=== PATIENT | female | born 1990 | race American Indian/Alaskan Native ===

== ENCOUNTER 2018-12-02 17:24 | Emergency (ER) | payer OTHER ==
--- NOTE | 2018-12-02 17:52 | Emergency Department Report ---
Blank Doc - Documentation Documentation: This is a 28-year-old female that presents with boil to left side face. Stated has drainage some of it yesterday. This initial assessment/diagnostic orders/clinical plan/treatment(s) is/are subject to change based on patient's health status, clinical progression and re-assessment by fellow clinical providers in the ED. Further treatment and workup at subsequent clinical providers discretion. Patient/guardians urged not to elope from the ED as their condition may be serious if not clinically assessed and managed. Initial orders include: 1- Patient sent to [facility] for further evaluation and treatment
--- NOTE | 2018-12-02 21:00 | Emergency Department Report ---
Abscess Boil HPI - HPI Chief Complaint: Skin/Abscess/Foreign Body Stated Complaint: LFT SIDE FACE SWOLLEN Time Seen by Provider: 12/02/18 17:50 Duration: 3 Days Location: Head (left side of face) Severity: Mild History: Yes Pain, Yes Purulent Drainage, No Fever, No Numbness, No Foreign Body, No Previous History, No Insect Bite HPI: This is a 28-year-old -Iranian female who presents with a ball to the left side of face for 3 days. Patient states that she woke up yesterday she noticed purulent drainage and decreased swelling. She reports he remains tender to touch. She also complains of some cough and to posterior neck. It is in termittent for the past 3-4 weeks. She is currently taken ibuprofen for pain. Denies pain to neck it this time. Denies fever, recent injury, warm, numbness or tingling. Home Medications: Previous Rx's Medication Instructions Recorded Last Taken Type Azithromycin [Zithromax Z-VEDA] 250 mg PO DAILY #6 tablet 09/16/18 Unknown Rx Benzonatate [Tessalon Perle] 100 mg PO Q8H PRN #20 capsule 09/16/18 Unknown Rx Doxycycline Hyclate [Doxycycline 100 mg PO Q12HR #28 tab 12/02/18 Unknown Rx Hyclate TAB] Ibuprofen [Motrin 600 MG tab] 600 mg PO Q8H PRN #20 tablet 12/02/18 Unknown Rx Salicylic Acid [Acne Pads] 1 each TP DAILY #1 box 12/02/18 Unknown Rx Allergies/Adverse Reactions: Allergies Allergy/AdvReac Type Severity Reaction Status Date / Time blueberry Allergy Swelling Verified 12/02/18 17:27 strawberry Allergy Swelling Verified 12/02/18 17:27 ED Review of Systems ROS: Stated complaint: LFT SIDE FACE SWOLLEN Other details as noted in HPI Constitutional: denies: chills, fever ENT: denies: ear pain, throat pain Respiratory: denies: cough, shortness of breath, wheezing Cardiovascular: denies: chest pain, palpitations Gastrointestinal: denies: abdominal pain, nausea, diarrhea Musculoskeletal: arthralgia (posterior neck pain). denies: back pain, joint swelling Skin: lesions (abscess to left cheek). denies: rash Neurological: denies: headache, weakness, paresthesias Psychiatric: denies: anxiety, depression ED Past Medical Hx - Past Medical History Previous Medical History?: No - Surgical History Past Surgical History?: No - Social History Smoking Status: Never Smoker Substance Use Type: Alcohol - Medications Home Medications: Home Medications Medication Instructions Recorded Confirmed Last Taken Type Azithromycin [Zithromax Z-VEDA] 250 mg PO DAILY #6 tablet 09/16/18 Unknown Rx Benzonatate [Tessalon Perle] 100 mg PO Q8H PRN #20 capsule 09/16/18 Unknown Rx Doxycycline Hyclate [Doxycycline 100 mg PO Q12HR #28 tab 12/02/18 Unknown Rx Hyclate TAB] Ibuprofen [Motrin 600 MG tab] 600 mg PO Q8H PRN #20 tablet 12/02/18 Unknown Rx Salicylic Acid [Acne Pads] 1 each TP DAILY #1 box 12/02/18 Unknown Rx ED Abscess Boil Physical Exam - Exam General: Vital signs noted. No distress. Alert and acting appropriately. Front/Back of Body, Lg (Color): 1 - 10 mm to 12 mm nonfluctuant erythematous papule to the left maxillary, tenderness, purulent drainage, mild surrounding cellulitis Exam: Yes Tenderness, Yes Surrounding Cellulites/Erythema, Yes Normal Neurologic Exam, Yes Normal Circulation, No Fluctuance, No Lymphangitis, No Crepitation, No Heart Murmur Exam: Neck: Tenderness to palpation left trapezius, FROM, no swelling or erythema. ED Course Vital Signs 12/02/18 17:51 Temperature 97.8 F Pulse Rate 84 Respiratory 18 Rate Blood Pressure 126/84 O2 Sat by Pulse 100 Oximetry Critical care attestation.: If time is entered above; I have spent that time in minutes in the direct care of this critically ill patient, excluding procedure time. ED Medical Decision Making - Medical Decision Making This is a 28 y.o. female that presents with a painful papule to left maxillary and posterior neck pain. No history of prior abscess. Reports a history of acne. Patient is stable and examined by me. No acute signs of distress noted. Physical sinus susceptible acne. Discussed plan to start doxycycline and sali cyclic acid topical for acne. Start ibuprofen for muscle strain. Referral to [facility] or [facility] for follow-up. Patient agrees to ED plan of care. Discharged home and follow up with PCP in 2-3 days. ED Disposition Clinical Impression: Acne vulgaris, Neck pain Strain of left trapezius muscle Qualifiers: Encounter type: initial encounter Qualified Code(s): S46.812A - Strain of other muscles, fascia and tendons at shoulder and upper arm level, left arm, initial encounter Disposition: TO HOME OR SELFCARE Is pt being admited?: No Does the pt Need Aspirin: No Condition: Stable Instructions: Muscle Strain (ED), Acne (ED) Additional Instructions: Referral course of antibiotics as prescribed. The full effects of treatment may take several months and symptoms may flare slightly after initiating treatment. Follow-up with a primary care provider from referrals below. Prescriptions: Salicylic Acid [Acne Pads] 1 each TP DAILY #1 box Doxycycline Hyclate [Doxycycline Hyclate TAB] 100 mg PO Q12HR #28 tab Ibuprofen [Motrin 600 MG tab] 600 mg PO Q8H PRN #20 tablet PRN Reason: Pain Referrals: JOSE BILLY MD [Primary Care Provider] - 3-5 Days [facility] [Outside] - 3-5 Days [facility] [Outside] - 3-5 Days Forms: Work/School Release Form(ED) Time of Disposition: 21:09
== END 2018-12-02 21:16 | disposition home or self-care (01) ==
LOC: ED 17:24
CPT/HCPCS: 99282

== ENCOUNTER 2019-07-24 14:56 | Emergency (ER) | payer OTHER ==
[2019-07-24 15:06] VITALS: BP 133/88
--- NOTE | 2019-07-24 15:13 | Emergency Department Report ---
Blank Doc - Documentation Documentation: 29-year-old female that presents with URI symptoms. This initial assessment/diagnostic orders/clinical plan/treatment(s) is/are subject to change based on patient's health status, clinical progression and re- assessment by fellow clinical providers in the ED. Further treatment and workup at subsequent clinical providers discretion. Patient/guardians urged not to elope from the ED as their condition may be serious if not clinically assessed and managed. Initial orders include: 1- Patient sent to [facility] for further evaluation and treatment 2- xray
--- NOTE | 2019-07-24 16:13 | XRay Report ---
CHEST PA AND LATERAL VIEWS INDICATION: cough. COMPARISON: None available. FINDINGS: Support devices: None. Heart: Within normal limits. Lungs/Pleura: No acute pulmonary or pleural findings. IMPRESSION: 1. No significant abnormality. Signer Name: Bryant Joshi MD Signed: 07/24/2019 4:09 PM Workstation Name: [id number]
--- NOTE | 2019-07-24 18:20 | Emergency Department Report ---
ED General Adult HPI - General Chief complaint: Nausea/Vomiting/Diarrhea Stated complaint: FLU LIKE SX Time Seen by Provider: 07/24/19 15:12 Source: patient Mode of arrival: Ambulatory Limitations: No Limitations - History of Present Illness Initial comments: This is a 29-year-old -[place] female who presents to the emergency room with flulike symptoms. Patient reports fever, headache, diarrhea, and congestion for 3 days. She reports weakness started today with worsening symptoms. She is taking cold and flu medication with minimal improvement of symptoms. Patient states she came over last weekend sick. She started feeling sick the day after she left. She denies myalgia, chest pain, and palpitations. Onset/Timin -: days(s) Radiation: non-radiation Severity scale (0 -10): 0 Improves with: none Worsens with: none Associated Symptoms: denies other symptoms Treatments Prior to Arrival: NSAID - Related Data Previous Rx's Medication Instructions Recorded Last Taken Type Azithromycin [Zithromax Z-VEDA] 250 mg PO DAILY #6 tablet 09/16/18 Unknown Rx Benzonatate [Tessalon Perle] 100 mg PO Q8H PRN #20 capsule 09/16/18 Unknown Rx Doxycycline Hyclate [Doxycycline 100 mg PO Q12HR #28 tab 12/02/18 Unknown Rx Hyclate TAB] Ibuprofen [Motrin 600 MG tab] 600 mg PO Q8H PRN #20 tablet 12/02/18 Unknown Rx Salicylic Acid [Acne Pads] 1 each TP DAILY #1 box 12/02/18 Unknown Rx Benzonatate [Tessalon Perles] 100 mg PO Q8HR PRN #30 capsule 07/24/19 Unknown Rx Cetirizine HCl [Zyrtec 10mg tab] 10 mg PO DAILY #30 tablet 07/24/19 Unknown Rx Allergies Allergy/AdvReac Type Severity Reaction Status Date / Time blueberry Allergy Swelling Verified 12/02/18 17:27 strawberry Allergy Swelling Verified 12/02/18 17:27 ED Review of Systems ROS: Stated complaint: FLU LIKE SX Other details as noted in HPI Constitutional: chills, fever ENT: congestion. denies: ear pain, throat pain Respiratory: cough. denies: shortness of breath, wheezing Cardiovascular: denies: chest pain, palpitations Gastrointestinal: nausea, vomiting, diarrhea. denies: abdominal pain Musculoskeletal: denies: myalgia Skin: denies: rash, lesions Neurological: denies: headache, weakness, paresthesias Psychiatric: denies: anxiety, depression ED Past Medical Hx - Past Medical History Previous Medical History?: No - Surgical History Past Surgical History?: No - Social History Smoking Status: Never Smoker Substance Use Type: None - Medications Home Medications: Home Medications Medication Instructions Recorded Confirmed Last Taken Type Azithromycin [Zithromax Z-VEDA] 250 mg PO DAILY #6 tablet 09/16/18 Unknown Rx Benzonatate [Tessalon Perle] 100 mg PO Q8H PRN #20 capsule 09/16/18 Unknown Rx Doxycycline Hyclate [Doxycycline 100 mg PO Q12HR #28 tab 12/02/18 Unknown Rx Hyclate TAB] Ibuprofen [Motrin 600 MG tab] 600 mg PO Q8H PRN #20 tablet 12/02/18 Unknown Rx Salicylic Acid [Acne Pads] 1 each TP DAILY #1 box 12/02/18 Unknown Rx Benzonatate [Tessalon Perles] 100 mg PO Q8HR PRN #30 capsule 07/24/19 Unknown Rx Cetirizine HCl [Zyrtec 10mg tab] 10 mg PO DAILY #30 tablet 07/24/19 Unknown Rx ED Physical Exam - General Limitations: No Limitations General appearance: alert, in no apparent distress - ENT ENT exam: Present: mucous membranes moist, TM's normal bilaterally, normal external ear exam, other (turbinates congested with mucoid discharge). Absent: normal orophraynx (erythematous posterior pharynx, uvula midline, negative peritonsillar swelling) - Neck Neck exam: Present: normal inspection. Absent: lymphadenopathy - Respiratory Respiratory exam: Present: normal lung sounds bilaterally. Absent: respiratory distress - Cardiovascular Cardiovascular Exam: Present: regular rate, normal rhythm. Absent: systolic murmur, diastolic murmur, rubs, gallop - GI/Abdominal GI/Abdominal exam: Present: soft, normal bowel sounds. Absent: distended, tenderness, guarding, rebound, rigid - Neurological Exam Neurological exam: Present: alert, oriented X3 - Psychiatric Psychiatric exam: Present: normal affect, normal mood - Skin Skin exam: Present: warm, dry, intact, normal color. Absent: rash ED Course Vital Signs 07/24/19 15:05 Temperature 98.2 F Pulse Rate 69 Respiratory 16 Rate Blood Pressure 133/88 O2 Sat by Pulse 98 Oximetry ED Medical Decision Making - Radiology Data Radiology results: report reviewed CHEST PA AND LATERAL VIEWS INDICATION: cough. COMPARISON: None available. FINDINGS: Support devices: None. Heart: Within normal limits. Lungs/Pleura: No acute pulmonary or pleural findings. IMPRESSION: 1. No significant abnormality. - Medical Decision Making Patient examined by me and stable. No distress noted. Vitals normal. Chest xray has been obtained and negative for acute cardiopulmonary findings. Patient notified of x-ray results with no questions. Vitals are normal and nonfocal exam and was mild congestion. At this time I do not believe this is influenza. Start benzonatate and ceterizine. Instructed to taking ibuprofen or tylenol for fever and pain control. Patient agrees with ER plan. Discharged home stable. Encouraged to do supportive care for URI. Follow up with Primary Care Provider in 2-3 days. Return to work in 2 days. Critical care attestation.: If time is entered above; I have spent that time in minutes in the direct care of this critically ill patient, excluding procedure time. ED Disposition Clinical Impression: Cough in adult Upper respiratory infection Qualifiers: URI type: acute nasopharyngitis (common cold) Qualified Code(s): J00 - Acute nasopharyngitis [common cold] Disposition: TO HOME OR SELFCARE Is pt being admited?: No Condition: Stable Instructions: Cold Symptoms (ED), Upper Respiratory Infection (ED) Additional Instructions: Increase fluid intake and rest. Wash hands frequently. Continue taking Tylenol or ibuprofen to control fever. F/U with Primary Care Provider. Return to ER if fever, SOB, or difficulty breathing after 48 hours of supportive care. Prescriptions: Benzonatate [Tessalon Perles] 100 mg PO Q8HR PRN #30 capsule PRN Reason: Cough Cetirizine HCl [Zyrtec 10mg tab] 10 mg PO DAILY #30 tablet Referrals: [facility] [Outside] - 3-5 Days [facility] [Outside] - 3-5 Days [facility] [Outside] - 3-5 Days Forms: Work/School Release Form(ED) Time of Disposition: 18:29
== END 2019-07-24 18:36 | disposition home or self-care (01) ==
LOC: ED 14:56
DX: J06.9 Acute upper respiratory infection, unspecified (principal)
CPT/HCPCS: 71046

== ENCOUNTER 2020-01-16 12:15 | Emergency (ER) | payer OTHER ==
[2020-01-16 12:24] VITALS: BP 128/90
--- NOTE | 2020-01-16 13:31 | Emergency Department Report ---
Minor Respiratory - HPI Chief Complaint: Upper Respiratory Infection Stated Complaint: CONGESTION/DIZZY Time Seen by Provider: 01/16/20 13:26 Minor Respiratory: Yes Rhinorrhea, Yes Cough, No Sore Throat, No Shortness of Breath, No Fever Other History: 29-year-old -[place] female presents to the emergency room stating that she woke up with sweats aching cold this a.m. Patient complains of nasal congestion headache rhinorrhea runny eyes and sneezing. Patient states that she took a allergy medication this morning that was pink. Patient does admit to some nausea and feels like the room is spinning. Patient stated the symptoms started yesterday. Patient denies any shortness of breath chest pain worst headache of her life or vomiting. Patient reports that she has a history of allergies. ED Review of Systems ROS: Stated complaint: CONGESTION/DIZZY Other details as noted in HPI ED Past Medical Hx - Past Medical History Previous Medical History?: No - Surgical History Past Surgical History?: No - Social History Smoking Status: Never Smoker Substance Use Type: None - Medications Home Medications: Home Medications Medication Instructions Recorded Confirmed Last Taken Type Azithromycin [Zithromax Z-VEDA] 250 mg PO DAILY #6 tablet 09/16/18 Unknown Rx Benzonatate [Tessalon Perle] 100 mg PO Q8H PRN #20 capsule 09/16/18 Unknown Rx Doxycycline Hyclate [Doxycycline 100 mg PO Q12HR #28 tab 12/02/18 Unknown Rx Hyclate TAB] Ibuprofen [Motrin 600 MG tab] 600 mg PO Q8H PRN #20 tablet 12/02/18 Unknown Rx Salicylic Acid [Acne Pads] 1 each TP DAILY #1 box 12/02/18 Unknown Rx Benzonatate [Tessalon Perles] 100 mg PO Q8HR PRN #30 capsule 07/24/19 Unknown Rx Cetirizine HCl [Zyrtec 10mg tab] 10 mg PO DAILY #30 tablet 07/24/19 Unknown Rx Cetirizine HCl [ZyrTEC 10mg cap] 10 mg PO QDAY #30 capsule 01/16/20 Unknown Rx Fluticasone [Flonase] 1 spray NS QDAY #1 bottle 01/16/20 Unknown Rx Meclizine [Antivert] 25 mg PO TID PRN #15 tablet 01/16/20 Unknown Rx Olopatadine HCl [Pataday 0.2%] 1 drop OP QDAY #1 bottle 01/16/20 Unknown Rx Minor Respiratory Exam - Exam General: Vital signs noted. No distress. Alert and acting appropriately. HEENT: Yes Moist Mucous Membranes, No Pharyngeal Erythema, No Pharyngeal Exudates, No Rhinorrhea, No Conjuctival Injection, No Frontal Tenderness, No Maxillary Tenderness Ear: Neither TM Bulge, Neither TM Erythema, Neither EAC Pain, Neither EAC D ischarge Neck: Yes Supple, No Adenopathy Lungs: Yes Good Air Exchange, No Wheezes, No Ronchi, No Stridor, No Cough, No Labored Respirations, No Retractions, No Use of Accessory Muscles, No Other Abnormal Lung Sounds Heart: Yes Regular, No Murmur Abdomen: Yes Normal Bowel Sounds, No Tenderness, No Peritoneal Signs Skin: No Rash, No Edema Neurologic: Alert and oriented, no deficits. Musculoskeletal: Unremarkable. ED Course Vital Signs 01/16/20 12:22 Temperature 98.2 F Pulse Rate 73 Respiratory 16 Rate Blood Pressure 128/90 O2 Sat by Pulse 99 Oximetry ED Medical Decision Making - Medical Decision Making 29-year-old -[place] female presents to the emergency room stating that she woke up with sweats aching cold this a.m. Patient complains of nasal congestion headache rhinorrhea runny eyes and sneezing. Patient states that she took a allergy medication this morning that was pink. Patient does admit to some nausea and feels like the room is spinning. Patient stated the symptoms started yesterday. Patient denies any shortness of breath chest pain worst headache of her life or vomiting. Patient reports that she has a history of allergies. Recommend taking [id number] Claritin or Zyrtec's. She can use meclizine as needed take Flonase daily use Pataday daily increase her fluid intake. Follow-up with a primary care provider if her symptoms persist or gets worse Critical care attestation.: If time is entered above; I have spent that time in minutes in the direct care of this critically ill patient, excluding procedure time. ED Disposition Clinical Impression: Vertigo, Allergic rhinitis due to allergen Disposition: DC-01 TO HOME OR SELFCARE Is pt being admited?: No Does the pt Need Aspirin: No Condition: Stable Instructions: Allergic Rhinitis (ED) Additional Instructions: Take medications as prescribed. Follow-up with your primary care provider. Prescriptions: Meclizine [Antivert] 25 mg PO TID PRN #15 tablet PRN Reason: Vertigo Fluticasone [Flonase] 1 spray NS QDAY #1 bottle Olopatadine HCl [Pataday 0.2%] 1 drop OP QDAY #1 bottle Cetirizine HCl [ZyrTEC 10mg cap] 10 mg PO QDAY #30 capsule Referrals: PRIMARY MD NINOSKA [Primary Care Provider] - 3-5 Days MARTIN UMANA MD [Staff Physician] - 3-5 Days Forms: Work/School Release Form(ED)
== END 2020-01-16 13:39 | disposition home or self-care (01) ==
LOC: ED 12:15
DX: R42 Dizziness and giddiness (principal); J30.89 Other allergic rhinitis; Z79.1 Long term (current) use of non-steroidal anti-inflammatories (NSAID); Z79.2 Long term (current) use of antibiotics; Z79.899 Other long term (current) drug therapy; Z91.018 Allergy to other foods
CPT/HCPCS: 99282

== ENCOUNTER 2020-06-06 20:05 | Emergency (ER) | payer OTHER ==
[2020-06-06 22:29] LABS: HCG Qualitative,Urine Negative (Negative)
--- NOTE | 2020-06-06 23:03 | XRay Report ---
CHEST 2 VIEWS INDICATION: Shortness of breath.. COMPARISON: 07/24/2019. FINDINGS: Support devices: None. Heart: Within normal limits. Lungs/Pleura: No acute air space or interstitial disease. No significant pleural effusion. IMPRESSION: No acute findings. Signer Name: Mark Anthony Vo MD Signed: 06/06/2020 10:58 PM Workstation Name: [id number]
[2020-06-07] MEDS ORDERED: ACETAMINOPHEN 500 MG TAB PO ONE (00:11)
[2020-06-07] MEDS ORDERED: IBUPROFEN 400 MG TAB PO ONE (00:11)
--- NOTE | 2020-06-07 00:13 | Emergency Department Report ---
ED General Adult HPI - General Chief complaint: Chest Pain Stated complaint: CHEST PAIN/ANXIETY PUI?: No Time Seen by Provider: 06/07/20 00:04 Source: patient, RN notes reviewed, old records reviewed Mode of arrival: Ambulatory Limitations: No Limitations - History of Present Illness Initial comments: The patient was evaluated in the emergency department for symptoms described in the history of present illness. He/she was evaluated in the context of the global COVID-19 pandemic, which necessitated consideration that the patient might be at risk for infection with the virus that causes COVID-19. Institutional protocols and algorithms that pertain to the evaluation of patients at risk for COVID-19 are in a state of rapid change based on information released by regulatory bodies including the CDC and federal and state organizations. These policies and algorithms were followed during the patient's care in the emergency department. Please note that these policies, procedures and recommendations changed on a rapid basis. During the entire history and physical examination, I am pulverizer feeder and escorted by shear assembler Joe Walker The patient is a pleasant, and anxious 29-year-old female, who states that she is not , who presents to the ER with a complaint of 11 hours of constant chest wall tightness, which started after she "began to have an anxiety attack." The patient reports a history of anxiety, and reports numerous psychosocial stressors. At 1:00 PM on June 06, 2020, she reports having had an anxiety attack, and developed constant chest wall tightness, which does not radiate to the back, arms or neck, without vomiting, diaphoresis, or exertional shortness of breath. She denies , oral contraceptive use, travel, surgery, recent /delivery, and denies DVT, pulmonary embolism risk factors. She also denies family history of DVT, pulmonary embolism, and ischemic heart d isease. Denies headache, neck pain, abdominal pain, vomiting, urinary symptoms, extremity weakness and or numbness. Her chest wall pain is constant, increases with palpation, range of motion, inspiration, and decreases with rest and position. -: Sudden, hour(s) Location: chest Radiation: non-radiation Quality: aching Consistency: constant Improves with: other Worsens with: other - Related Data Previous Rx's Medication Instructions Recorded Last Taken Type Azithromycin [Zithromax Z-VEDA] 250 mg PO DAILY #6 tablet 09/16/18 Unknown Rx Benzonatate [Tessalon Perle] 100 mg PO Q8H PRN #20 capsule 09/16/18 Unknown Rx Doxycycline Hyclate [Doxycycline 100 mg PO Q12HR #28 tab 12/02/18 Unknown Rx Hyclate TAB] Ibuprofen [Motrin 600 MG tab] 600 mg PO Q8H PRN #20 tablet 12/02/18 Unknown Rx Salicylic Acid [Acne Pads] 1 each TP DAILY #1 box 12/02/18 Unknown Rx Benzonatate [Tessalon Perles] 100 mg PO Q8HR PRN #30 capsule 07/24/19 Unknown Rx Cetirizine HCl [Zyrtec 10mg tab] 10 mg PO DAILY #30 tablet 07/24/19 Unknown Rx Cetirizine HCl [ZyrTEC 10mg cap] 10 mg PO QDAY #30 capsule 01/16/20 Unknown Rx Fluticasone [Flonase] 1 spray NS QDAY #1 bottle 01/16/20 Unknown Rx Meclizine [Antivert] 25 mg PO TID PRN #15 tablet 01/16/20 Unknown Rx Olopatadine HCl [Pataday 0.2%] 1 drop OP QDAY #1 bottle 01/16/20 Unknown Rx Allergies Allergy/AdvReac Type Severity Reaction Status Date / Time blueberry Allergy Swelling Verified 01/16/20 12:23 strawberry Allergy Swelling Verified 01/16/20 12:23 ED Review of Systems ROS: Stated complaint: CHEST PAIN/ANXIETY Other details as noted in HPI Constitutional: denies: fever, malaise, weakness Eyes: denies: eye discharge ENT: denies: congestion Respiratory: other (Patient denies exertional shortness of breath or dyspnea). denies: cough Cardiovascular: chest pain, palpitations. denies: orthopnea Gastrointestinal: denies: abdominal pain, nausea, vomiting, diarrhea Genitourinary: denies: urgency Musculoskeletal: denies: arthralgia, myalgia Neurological: weakness Psychiatric: anxiety. denies: homicidal thoughts, suicidal thoughts ED Past Medical Hx - Past Medical History Previous Medical History?: No - Social History Smoking Status: Never Smoker - Medications Home Medications: Home Medications Medication Instructions Recorded Confirmed Last Taken Type Azithromycin [Zithromax Z-VEDA] 250 mg PO DAILY #6 tablet 09/16/18 Unknown Rx Benzonatate [Tessalon Perle] 100 mg PO Q8H PRN #20 capsule 09/16/18 Unknown Rx Doxycycline Hyclate [Doxycycline 100 mg PO Q12HR #28 tab 12/02/18 Unknown Rx Hyclate TAB] Ibuprofen [Motrin 600 MG tab] 600 mg PO Q8H PRN #20 tablet 12/02/18 Unknown Rx Salicylic Acid [Acne Pads] 1 each TP DAILY #1 box 12/02/18 Unknown Rx Benzonatate [Tessalon Perles] 100 mg PO Q8HR PRN #30 capsule 07/24/19 Unknown Rx Cetirizine HCl [Zyrtec 10mg tab] 10 mg PO DAILY #30 tablet 07/24/19 Unknown Rx Cetirizine HCl [ZyrTEC 10mg cap] 10 mg PO QDAY #30 capsule 01/16/20 Unknown Rx Fluticasone [Flonase] 1 spray NS QDAY #1 bottle 01/16/20 Unknown Rx Meclizine [Antivert] 25 mg PO TID PRN #15 tablet 01/16/20 Unknown Rx Olopatadine HCl [Pataday 0.2%] 1 drop OP QDAY #1 bottle 01/16/20 Unknown Rx ED Physical Exam - General Limitations: No Limitations General appearance: alert, in no apparent distress - Head Head exam: Present: atraumatic, normocephalic - Eye Eye exam: Present: normal appearance, EOMI. Absent: nystagmus - ENT ENT exam: Present: normal exam, normal orophraynx, mucous membranes moist, normal external ear exam - Neck Neck exam: Present: normal inspection, full ROM. Absent: tenderness, meningismus - Respiratory Respiratory exam: Present: normal lung sounds bilaterally, chest wall tenderness. Absent: respiratory distress, wheezes, rales, rhonchi, stridor - Cardiovascular Cardiovascular Exam: Present: normal rhythm, bradycardia, normal heart sounds. Absent: tachycardia, irregular rhythm, systolic murmur, diastolic murmur, rubs, gallop - GI/Abdominal GI/Abdominal exam: Present: soft, normal bowel sounds. Absent: distended, tenderness, guarding, rebound, rigid - Extremities Exam Extremities exam: Present: normal inspection, full ROM, other (2+ pulses noted in the bilateral upper and lower extremities. There is no palpable cord. negative Homans sign. Muscular compartments are soft. The pelvis is stable.). Absent: pedal edema, calf tenderness - Back Exam Back exam: Present: normal inspection, full ROM. Absent: tenderness, CVA tenderness (R), CVA tenderness (L), paraspinal tenderness, vertebral tenderness - Neurological Exam Neurological exam: Present: alert, oriented X3, normal gait, other (No facial droop. Tongue midline. Extraocular movements intact bilaterally. Facial sensation intact to light touch in V1, V2, V3 distribution bilaterally. 5 and a 5 strength in 4 extremities. Sensation intact to light touch in 4 extremities.). Absent: motor sensory deficit - Psychiatric Psychiatric exam: Present: normal affect, normal mood. Absent: homicidal ideation, suicidal ideation - Skin Skin exam: Present: warm, dry, intact, normal color. Absent: rash ED Course Vital Signs 06/06/20 20:24 Temperature 98.2 F Pulse Rate 61 Respiratory 16 Rate Blood Pressure 127/87 O2 Sat by Pulse 98 Oximetry ED Medical Decision Making - Lab Data Vital Signs 06/06/20 20:24 Temperature 98.2 F Pulse Rate 61 Respiratory 16 Rate Blood Pressure 127/87 O2 Sat by Pulse 98 Oximetry - EKG Data -: EKG Interpreted by Ks - EKG Data 06/07/20 00:17 No prior EKGs available for comparison. Sinus rhythm, bradycardia, 53 bpm, normal axis, normal intervals, borderline high left ventricular voltage, the EKG is not a STEMI. - Radiology Data Radiology results: report reviewed, image reviewed X-ray of the chest is negative for acute findings. - Medical Decision Making Differential diagnosis, including but not limited to: Costochondritis, GERD, gastritis, hiatal hernia, pneumonia, panic attacks/anxiety Assessment and plan: 29-year-old female, who is afebrile, with reassuring vital signs, not currently tachycardic, tachypneic or hypoxic, with no DVT or pulmonary embolism risk factors, low risk by Wells criteria, who was PERC negative, who presents with approximately 11 hours of constant reproducible chest wall pain, without vomiting, diaphoresis, or exertional shortness of breath. Her chest x-ray is unremarkable, physical exam unremarkable with exception of reproducible chest wall tenderness, EKG morphologically unremarkable, and when I walked into the room to evaluate the patient, she is talking/playing on a cellular phone, and she is in no acute distress. Reassurance provided, expectant management, she can follow-up with an outpatient primary care doctor and/or automatic coil machine operator. Critical care attestation.: If time is entered above; I have spent that time in minutes in the direct care of this critically ill patient, excluding procedure time. ED Disposition Clinical Impression: Chest wall pain Disposition: DC-01 TO HOME OR SELFCARE Is pt being admited?: No Does the pt Need Aspirin: No Condition: Stable Instructions: Costochondritis (ED) Additional Instructions: Patient may alternate Tylenol [id number], with ibuprofen [id number] as needed for pain. Avoid heavy lifting and strenuous physical activities, and participate in exercise as tolerated. Avoid consumption of alcohol, smoke products, heavy and/or spicy foods. Follow-up with your primary care doctor or a automatic coil machine operator within the next 5 to 7 days. Please return to the emergency room right away with new pain, worsening pain, migration of pain, projectile vomiting, change in mental status, confusion, inability to tolerate liquid feeds, new, worsened or different symptoms not present on the initial emergency room evaluation. Referrals: MARTIN UMANA MD [Staff Physician] - 3-5 Days BIBI FERNANDEZ MD [Staff Physician] - 3-5 Days Forms: Work/School Release Form(ED)
[2020-06-07 00:17] VITALS: BP 131/90
== END 2020-06-07 00:41 | disposition home or self-care (01) ==
LOC: ED 20:05
DX: R07.89 Other chest pain (principal); R00.2 Palpitations; Z79.899 Other long term (current) drug therapy; Z91.018 Allergy to other foods
CPT/HCPCS: 71046; 81025; 93005

== ENCOUNTER 2020-09-01 20:04 | Emergency (ER) | payer SELFPAY ==
[2020-09-01 20:56] VITALS: BP 137/89
--- NOTE | 2020-09-01 21:01 | Event Note ---
ED Screening Note ED Screening Note: states she has been coughing a week states she has streaks of blood after frequent coughing today no v/d +nausea +CP after coughing +SOB +sore throat PMHx none no allergies to meds LNMP: 08/22/2020 This initial assessment/diagnostic orders/clinical plan/treatment(s) is/are subject to change based on patients health status, clinical progression and re- assessment by fellow clinical providers in the ED. Further treatment and workup at subsequent clinical providers discretion. Patient/guardian urged not to elope from the ED as their condition may be serious if not clinically assessed and managed. Initial orders include: CXR, labs, UA, urine preg
[2020-09-01 21:56] LABS: Bilirubin,Urine NEG (Negative); Blood,Urine SM (Negative); Color,Urine Yellow (Yellow); Mucus,Urine FEW /HPF; Protein,Urine <15 mg/dL mg/dL (Negative); Urobilinogen,Urine < 2.0 mg/dL (<2.0)
[2020-09-01 22:01] LABS: HCG Qualitative,Urine Negative (Negative)
[2020-09-01 22:32] LABS: Basophils % (Auto) 0.6 % (0.0-1.8); Eosinophils # (Auto) 0.2 K/mm3 (0.0-0.4); Eosinophils % (Auto) 2.8 % (0.0-4.3); Hemoglobin 12.8 gm/dl (10.1-14.3); Lymphocytes # (Auto) 2.3 K/mm3 (1.2-5.4); Lymphocytes % (Auto) 35.2 % (13.4-35.0); Mean Corpuscular HGB Conc 31 % (30-34); Mean Corpuscular Volume 72 fl (79-97); Monocytes # (Auto) 0.5 K/mm3 (0.0-0.8); Monocytes % (Auto) 7.3 % (0.0-7.3); Platelet Count 398 K/mm3 (140-440); Red Blood Count 5.69 M/mm3 (3.65-5.03); Red Cell Distribution Width 14.5 % (13.2-15.2)
--- NOTE | 2020-09-01 22:33 | XRay Report ---
CHEST 2 VIEWS INDICATION / CLINICAL INFORMATION: cough x 1 week. COMPARISON: Chest radiograph 06/06/2020 FINDINGS: SUPPORT DEVICES: None. HEART / MEDIASTINUM: No significant abnormality. LUNGS / PLEURA: No significant pulmonary or pleural abnormality. No pneumothorax. ADDITIONAL FINDINGS: No significant additional findings. IMPRESSION: 1. No acute findings. Signer Name: Jossie Mckay MD Signed: 09/01/2020 10:29 PM Workstation Name: [id number]
[2020-09-01 23:26] LABS: Alanine Aminotransferase 16 units/L (7-56); Albumin 4.3 g/dL (3.9-5); Blood Urea Nitrogen 10 mg/dL (7-17); Calcium 10.3 mg/dL (8.4-10.2); Hemolysis Index 51
[2020-09-01 23:34] LABS: BUN/Creatinine Ratio 20
[2020-09-02] MEDS ORDERED: LIDOCAINE VISCOUS 2% 15 ML ORAL LIQD PO ONE (00:02)
[2020-09-02] MEDS ORDERED: IBUPROFEN 600 MG TAB PO ONE (00:02)
[2020-09-02] MEDS ORDERED: predniSONE 20 MG TAB PO ONE (00:02)
[2020-09-02] MEDS ORDERED: AMOXICILLIN/K CLAV 875/125MG TAB PO ONE (00:02)
--- NOTE | 2020-09-02 00:07 | Emergency Department Report ---
- General Chief Complaint: Upper Respiratory Infection Stated Complaint: COLD SX/CHEST PAIN/HEADACHE/SORE THROAT Time Seen by Provider: 09/01/20 20:59 Source: patient Mode of arrival: Ambulatory Limitations: No Limitations - History of Present Illness Initial Comments: Patient is a 30-year-old -[place] female with no past medical history presents to the ED with complaint of acute onset persistent nasal and sinus congestion, frontal sinus pressure, with a headache and persistent dry cough for the last 1 week. Patient also complains of severe sore throat with dysphagia for the last 3 days. Patient also complains of vaginal spotting for the last 12 hours despite her last menstrual cycle having ended 4 days ago. Patient denies fever, chills, nausea and vomiting, diarrhea, abdominal pain, chest pain, shortness of breath, dizziness, syncope, neck pain, change in vision, seizures, dysuria or urinary frequency and urgency. MD Complaint: cough, sore throat, rhinorrhea, nasal congestion, sinus pain -: Sudden, week(s) (1) Severity: severe Severity scale (0 -10): 8 Quality: sharp, aching Consistency: constant Improves With: nothing Worsens With: nothing Associated Symptoms: denies other symptoms, myalgias, headache, rhinorrhea, nasal congestion, sore throat, cough. denies: fever, chills, stiff neck, chest pain, shortness of breath, abdominal pain, nausea, vomiting, diarrhea, dysuria, rash, confusion, right sweats, weight loss, epistaxis, hoarseness, ear pain, other Treatments Prior to Arrival: "cold medicine" - Related Data Previous Rx's Medication Instructions Recorded Last Taken Type Azithromycin [Zithromax Z-VEDA] 250 mg PO DAILY #6 tablet 09/16/18 Unknown Rx Benzonatate [Tessalon Perle] 100 mg PO Q8H PRN #20 capsule 09/16/18 Unknown Rx Doxycycline Hyclate [Doxycycline 100 mg PO Q12HR #28 tab 12/02/18 Unknown Rx Hyclate TAB] Ibuprofen [Motrin 600 MG tab] 600 mg PO Q8H PRN #20 tablet 12/02/18 Unknown Rx Salicylic Acid [Acne Pads] 1 each TP DAILY #1 box 12/02/18 Unknown Rx Cetirizine HCl [Zyrtec 10mg tab] 10 mg PO DAILY #30 tablet 07/24/19 Unknown Rx Fluticasone [Flonase] 1 spray NS QDAY #1 bottle 01/16/20 Unknown Rx Meclizine [Antivert] 25 mg PO TID PRN #15 tablet 01/16/20 Unknown Rx Olopatadine HCl [Pataday 0.2%] 1 drop OP QDAY #1 bottle 01/16/20 Unknown Rx Amoxicillin/Potassium Clav 1 each PO Q12H #20 tablet 09/02/20 Unknown Rx [Augmentin 875-125 Tablet] Benzonatate [Tessalon Perles] 100 mg PO Q8HR PRN #30 capsule 09/02/20 Unknown Rx Cetirizine HCl [ZyrTEC 10mg cap] 10 mg PO QDAY #30 capsule 09/02/20 Unknown Rx Ibuprofen [Motrin] 800 mg PO Q8HR PRN #24 tablet 09/02/20 Unknown Rx Lidocaine Viscous 2% 10 ml PO Q6H PRN #120 ml 09/02/20 Unknown Rx Ondansetron [Zofran Odt] 4 mg PO Q6HR PRN #15 tab.rapdis 09/02/20 Unknown Rx Prednisone [predniSONE 10 mg 10 mg PO .TAPER #21 tab.ds.pk 09/02/20 Unknown Rx (6-Day Pack, 21 Tabs)] Allergies Allergy/AdvReac Type Severity Reaction Status Date / Time blueberry Allergy Swelling Verified 01/16/20 12:23 strawberry Allergy Swelling Verified 01/16/20 12:23 ED Review of Systems ROS: Stated complaint: COLD SX/CHEST PAIN/HEADACHE/SORE THROAT Other details as noted in HPI Constitutional: denies: chills, fever Eyes: denies: eye pain, eye discharge, vision change ENT: throat pain, congestion, other (Frontal sinus pressure). denies: ear pain Respiratory: denies: cough, shortness of breath, wheezing Cardiovascular: denies: chest pain, palpitations, edema, syncope, paroxysmal nocturnal dyspnea Endocrine: no symptoms reported. denies: excessive sweating, flushing, increased hunger, increased thirst Gastrointestinal: denies: abdominal pain, nausea, vomiting, diarrhea, constipation, hematochezia Genitourinary: denies: urgency, dysuria, frequency, hematuria, discharge Musculoskeletal: denies: back pain, joint swelling, arthralgia Skin: denies: rash, lesions Neurological: headache. denies: weakness, paresthesias Psychiatric: denies: anxiety, depression Hematological/Lymphatic: denies: easy bleeding, easy bruising ED Past Medical Hx - Past Medical History Previous Medical History?: No - Surgical History Past Surgical History?: No - Social History Smoking Status: Never Smoker - Medications Home Medications: Home Medications Medication Instructions Recorded Confirmed Last Taken Type Azithromycin [Zithromax Z-VEDA] 250 mg PO DAILY #6 tablet 09/16/18 Unknown Rx Benzonatate [Tessalon Perle] 100 mg PO Q8H PRN #20 capsule 09/16/18 Unknown Rx Doxycycline Hyclate [Doxycycline 100 mg PO Q12HR #28 tab 12/02/18 Unknown Rx Hyclate TAB] Ibuprofen [Motrin 600 MG tab] 600 mg PO Q8H PRN #20 tablet 12/02/18 Unknown Rx Salicylic Acid [Acne Pads] 1 each TP DAILY #1 box 12/02/18 Unknown Rx Cetirizine HCl [Zyrtec 10mg tab] 10 mg PO DAILY #30 tablet 07/24/19 Unknown Rx Fluticasone [Flonase] 1 spray NS QDAY #1 bottle 01/16/20 Unknown Rx Meclizine [Antivert] 25 mg PO TID PRN #15 tablet 01/16/20 Unknown Rx Olopatadine HCl [Pataday 0.2%] 1 drop OP QDAY #1 bottle 01/16/20 Unknown Rx Amoxicillin/Potassium Clav 1 each PO Q12H #20 tablet 09/02/20 Unknown Rx [Augmentin 875-125 Tablet] Benzonatate [Tessalon Perles] 100 mg PO Q8HR PRN #30 capsule 09/02/20 Unknown Rx Cetirizine HCl [ZyrTEC 10mg cap] 10 mg PO QDAY #30 capsule 09/02/20 Unknown Rx Ibuprofen [Motrin] 800 mg PO Q8HR PRN #24 tablet 09/02/20 Unknown Rx Lidocaine Viscous 2% 10 ml PO Q6H PRN #120 ml 09/02/20 Unknown Rx Ondansetron [Zofran Odt] 4 mg PO Q6HR PRN #15 tab.rapdis 09/02/20 Unknown Rx Prednisone [predniSONE 10 mg 10 mg PO .TAPER #21 tab.ds.pk 12/10/20 Unknown Rx (6-Day Pack, 21 Tabs)] ED Physical Exam - General Limitations: No Limitations General appearance: alert, in no apparent distress - Head Head exam: Present: atraumatic, normocephalic, normal inspection - Eye Eye exam: Present: normal appearance, PERRL, EOMI Pupils: Present: normal accommodation - ENT ENT exam: Present: mucous membranes moist, TM's normal bilaterally, normal external ear exam, other (Palpable frontal sinus tenderness; erythematous oropharynx and thick white tonsillar exudates) - Neck Neck exam: Present: normal inspection, full ROM, lymphadenopathy - Respiratory Respiratory exam: Present: normal lung sounds bilaterally. Absent: respiratory distress, wheezes, rales, rhonchi, chest wall tenderness, accessory muscle use, decreased breath sounds - Cardiovascular Cardiovascular Exam: Present: regular rate, normal rhythm, normal heart sounds. Absent: systolic murmur, diastolic murmur, rubs, gallop - GI/Abdominal GI/Abdominal exam: Present: soft, normal bowel sounds. Absent: tenderness, guarding, rebound, hyperactive bowel sounds, hypoactive bowel sounds, organomegaly - Extremities Exam Extremities exam: Present: normal inspection, full ROM, normal capillary refill - Back Exam Back exam: Present: normal inspection, full ROM. Absent: tenderness, CVA t enderness (R), CVA tenderness (L), muscle spasm, paraspinal tenderness, vertebral tenderness - Neurological Exam Neurological exam: Present: alert, oriented X3, CN II-XII intact, normal gait, reflexes normal - Psychiatric Psychiatric exam: Present: normal affect, normal mood - Skin Skin exam: Present: warm, dry, intact, normal color. Absent: rash ED Course Vital Signs 09/01/20 20:55 Temperature 98.3 F Pulse Rate 66 Respiratory 18 Rate Blood Pressure 137/89 O2 Sat by Pulse 99 Oximetry ED Medical Decision Making - Lab Data Result diagrams: 09/01/20 21:09 09/01/20 21:09 - Radiology Data Radiology results: report reviewed, image reviewed Findings [facility] [address] [place] [address] XRay Report Signed Patient: KISHAN PRASAD MR#: [id number] : 1990 Acct:[id number] Age/Sex: 30 / F ADM Date: 09/01/20 Loc: ED Attending Dr: Ordering Physician: KAMLA ESCOBAR Date of Service: 09/01/20 Procedure(s): XR chest routine 2V Accession Number(s): [id number] cc: KAMLA ESCOBAR Fluoro Time In Minutes: CHEST 2 VIEWS INDICATION / CLINICAL INFORMATION: cough x 1 week. COMPARISON: Chest radiograph 06/06/2020 FINDINGS: SUPPORT DEVICES: None. HEART / MEDIASTINUM: No significant abnormality. LUNGS / PLEURA: No significant pulmonary or pleural abnormality. No pneumothorax. ADDITIONAL FINDINGS: No significant additional findings. IMPRESSION: 1. No acute findings. Signer Name: Jossie Mkcay MD Signed: 09/01/2020 10:29 PM Workstation Name: [id number] Transcribed By: C Dictated By: Jossie Mckay MD Electronically Authenticated By: Jossie Mckay MD Signed Date/Time: 09/01/202228 DD/ 27 TD/TT: - Medical Decision Making This is a 30-year-old -[place] female with no past medical history presents to the ED with complaint of acute onset persistent nasal and sinus congestion, frontal sinus pressure, with a headache and persistent dry cough for the last 1 week. Patient also complains of severe sore throat with dysphagia for the last 3 days. Patient also complains of vaginal spotting for the last 12 hours despite her last menstrual cycle having ended 4 days ago. In the ED, patient is alert and oriented x3 and is not in distress. Lab test results were reviewed and are all nonactionable except for urinalysis that showed mild urinary tract infection. Patient was treated for pain in the ED and also given initial antibiotics in the ED. On reevaluation, patient's pain is well controlled medications. Patient was discharged home on medications and advised to follow-up with her primary care physician in 5 to 7 days for reevaluation return to the ED immediately if symptoms get worse. - Differential Diagnosis Sinusitis; Strep pharyngitis; Pneumonia; Bronchitis; URI; Covid-19 Critical care attestation.: If time is entered above; I have spent that time in minutes in the direct care of this critically ill patient, excluding procedure time. ED Disposition Clinical Impression: Acute streptococcal pharyngitis, Acute non-recurrent frontal sinusitis, Acute urinary tract infection Acute bronchitis Qualifiers: Bronchitis organism: other organism Qualified Code(s): J20.8 - Acute bronchitis due to other specified organisms Disposition: DC-01 TO HOME OR SELFCARE Is pt being admited?: No Does the pt Need Aspirin: No Condition: Stable Instructions: Acute Bronchitis (ED), Sinusitis, Adult, [id number], Upper Respiratory Infection, Adult, [id number], Urinary Tract Infection, Adult, Ea sy-to-Read, Acute Bronchitis, Adult, [id number], Strep Throat, Adult, [id number] Additional Instructions: Chest x-ray shows no acute cardiopulmonary abnormalities or pneumonitis. Lab test results were reviewed and are all nonactionable except for urinalysis that showed urinary tract infection. Therefore take medications with food, drink plenty of fluids and follow-up with your primary care physician in 7 to 10 days for reevaluation or return to the ED immediately if symptoms get worse. Prescriptions: Amoxicillin/Potassium Clav [Augmentin 875-125 Tablet] 1 each PO Q12H #20 tablet Lidocaine Viscous 2% 10 ml PO Q6H PRN #120 ml PRN Reason: Sore Throat Ibuprofen [Motrin] 800 mg PO Q8HR PRN #24 tablet PRN Reason: Pain , Severe (7-10) Prednisone [predniSONE 10 mg (6-Day Pack, 21 Tabs)] 10 mg PO .TAPER #21 tab.ds.pk Benzonatate [Tessalon Perles] 100 mg PO Q8HR PRN #30 capsule PRN Reason: Cough Ondansetron [Zofran Odt] 4 mg PO Q6HR PRN #15 tab.rapdis PRN Reason: Nausea Cetirizine HCl [ZyrTEC 10mg cap] 10 mg PO QDAY #30 capsule Referrals: [facility] [Provider Group] - 3-5 Days Forms: Work/School Release Form(ED) Time of Disposition: 00:09 Print Language: ICELANDIC
== END 2020-09-02 00:50 | disposition home or self-care (01) ==
LOC: ED 20:04
DX: J02.0 Streptococcal pharyngitis (principal); J01.10 Acute frontal sinusitis, unspecified; N39.0 Urinary tract infection, site not specified; J20.8 Acute bronchitis due to other specified organisms; Z79.1 Long term (current) use of non-steroidal anti-inflammatories (NSAID); Z79.2 Long term (current) use of antibiotics; Z79.899 Other long term (current) drug therapy; Z88.8 Allergy status to other drugs, medicaments and biological substances
CPT/HCPCS: 36415; 71046; 80053; 81001; 81025; 85025; 87086; 99284; J7512